=== PATIENT | female | born 1985 | race Two or more races ===

== ENCOUNTER 2019-10-09 22:06 | Emergency (ER) | payer OTHER ==
[~2019-10-09] VITALS: Ht 157.5 cm; Wt 80.7 kg
[2019-10-09 23:31] LABS: BASOPHILS % (AUTO) 0.3 % (0.0-2.0); EOSINOPHILS % (AUTO) 1.4 % (1.0-6.0); HEMATOCRIT 38.1 % (36-46); HEMOGLOBIN 12.7 g/dL (12.0-16.0); LYMPHOCYTES # (AUTO) 2.7 K/uL (1.0-4.8); LYMPHOCYTES % (AUTO) 26.7 % (22.0-44.0); MEAN CORPUSCULAR HEMOGLOBIN 28.1 pg (26.0-34.0); MEAN CORPUSCULAR HGB CONC 33.3 G/dL (31.0-37.0); MEAN CORPUSCULAR VOLUME 84 fL (80-100); MONOCYTES # (AUTO) 0.7 K/uL (0.1-1.0); MONOCYTES % (AUTO) 6.7 % (2.0-9.0); NEUTROPHILS # (AUTO) 6.7 K/uL (1.8-7.7); NEUTROPHILS % (AUTO) 64.9 % (40.0-70.0); PLATELET COUNT (AUTO) 279 K/uL (150-450); RED BLOOD CELL COUNT(AUTO) 4.51 MIL/uL (4.00-5.20); RED CELL DISTRIBUTION WIDTH 13.6 % (11.5-14.5)
[2019-10-09 23:40] LABS: ANION GAP 10 mmol/L (8-16); CALCIUM, TOTAL 8.6 mg/dL (8.8-10.5); CARBON DIOXIDE 26 mmol/L (22-29); CHLORIDE 108 mmol/L (98-107); GLOMERULAR FILTR. RATE CALC > 60 mL/min (>60); GLUCOSE,RANDOM 99 mg/dL (70-110); POTASSIUM 3.7 mmol/L (3.5-5.1); SODIUM SERUM 144 mmol/L (136-145); UREA NITROGEN, BLOOD 9 mg/dL (7-18)
[2019-10-09 23:45] LABS: ALANINE AMINOTRANSFERASE 31 U/L (12-78); ALBUMIN 3.5 g/dL (3.4-5.0); ALKALINE PHOSPHATASE 81 U/L (46-116); ASPARTATE AMINOTRANSFERASE 21 U/L (15-37); BILIRUBIN,TOTAL 0.4 mg/dL (0.1-1.0); TOTAL PROTEIN, SERUM 6.9 g/dL (6.4-8.2)
[2019-10-09 23:51] LABS: AMPHET/METH SCREEN,URINE NEGATIVE (NEGATIVE); BARBITURATE SCREEN, URINE NEGATIVE (NEGATIVE); BENZODIAZEPINES SCREEN,URINE NEGATIVE (NEGATIVE); CANNABINOID SCREEN,URINE NEGATIVE (NEGATIVE); COCAINE SCREEN,URINE NEGATIVE (NEGATIVE); METHADONE SCREEN, URINE NEGATIVE (NEGATIVE); OPIATE SCREEN,URINE NEGATIVE (NEGATIVE)
[2019-10-09 23:53] LABS: PHENCYCLIDINE SCREEN,URINE NEGATIVE (NEGATIVE)
[2019-10-10 01:21] LABS: HCG,QUANTITATIVE < 1 mIU/mL (0-6)
[2019-10-10 01:57] VITALS: BP 122/70
== END 2019-10-10 02:00 | disposition home or self-care (01) ==
LOC: EMS 22:10
DX: F43.9 Reaction to severe stress, unspecified (principal)

== ENCOUNTER 2020-01-09 22:28 | Inpatient (IN) | payer MEDICAID, OTHER ==
[~2020-01-09] VITALS: Ht 157.5 cm; Wt 82.2 kg
[2020-01-10 00:44] LABS: AMPHET/METH SCREEN,URINE NEGATIVE (NEGATIVE); BARBITURATE SCREEN, URINE NEGATIVE (NEGATIVE); BENZODIAZEPINES SCREEN,URINE NEGATIVE (NEGATIVE); CANNABINOID SCREEN,URINE POSITIVE (NEGATIVE); COCAINE SCREEN,URINE NEGATIVE (NEGATIVE); METHADONE SCREEN, URINE NEGATIVE (NEGATIVE); OPIATE SCREEN,URINE NEGATIVE (NEGATIVE); PHENCYCLIDINE SCREEN,URINE NEGATIVE (NEGATIVE)
[2020-01-10 00:59] LABS: BASOPHILS % (AUTO) 0.4 % (0.0-2.0); EOSINOPHILS % (AUTO) 0.7 % (1.0-6.0); HEMATOCRIT 39.6 % (36-46); LYMPHOCYTES # (AUTO) 2.8 K/uL (1.0-4.8); LYMPHOCYTES % (AUTO) 22.3 % (22.0-44.0); MEAN CORPUSCULAR HEMOGLOBIN 27.6 pg (26.0-34.0); MEAN CORPUSCULAR HGB CONC 32.7 G/dL (31.0-37.0); MEAN CORPUSCULAR VOLUME 84 fL (80-100); MONOCYTES # (AUTO) 0.8 K/uL (0.1-1.0); MONOCYTES % (AUTO) 6.5 % (2.0-9.0); NEUTROPHILS # (AUTO) 8.6 K/uL (1.8-7.7); NEUTROPHILS % (AUTO) 70.1 % (40.0-70.0); PLATELET COUNT (AUTO) 294 K/uL (150-450); RED BLOOD CELL COUNT(AUTO) 4.69 MIL/uL (4.00-5.20); RED CELL DISTRIBUTION WIDTH 14.1 % (11.5-14.5)
[2020-01-10 01:08] LABS: ANION GAP 6 mmol/L (8-16); CALCIUM, TOTAL 9.7 mg/dL (8.8-10.5); CARBON DIOXIDE 29 mmol/L (22-29); CHLORIDE 107 mmol/L (98-107); CREATININE 0.72 mg/dL (0.60-1.30); GLOMERULAR FILTR. RATE CALC > 60 mL/min (>60); GLUCOSE,RANDOM 103 mg/dL (70-110); POTASSIUM 3.7 mmol/L (3.5-5.1); SODIUM SERUM 142 mmol/L (136-145); UREA NITROGEN, BLOOD 10 mg/dL (7-18)
[2020-01-10 01:22] LABS: ALANINE AMINOTRANSFERASE 43 U/L (12-78); ALBUMIN 3.9 g/dL (3.4-5.0); ALKALINE PHOSPHATASE 109 U/L (46-116); ASPARTATE AMINOTRANSFERASE 18 U/L (15-37); BILIRUBIN,TOTAL 0.3 mg/dL (0.1-1.0); HCG,QUANTITATIVE < 1 mIU/mL (0-6); TOTAL PROTEIN, SERUM 7.9 g/dL (6.4-8.2)
[2020-01-10] MEDS ORDERED: HALOPERIDOL 5 MG TABLET PO PRN (04:30)
[2020-01-10] MEDS ORDERED: ZOLPIDEM TARTRATE 10 MG TABLET PO PRN (04:30)
[2020-01-10] MEDS ORDERED: LORazepam 2 MG TABLET PO PRN (04:30)
[2020-01-10 09:17] VITALS: BP 120/77
[2020-01-10] MEDS: BuPROPion HCL XL 150 MG ER TABLET PO SCH (10:28)
[2020-01-10] MEDS ORDERED: INFLUENZA VIRUS VACCINE QVS 2019-20 (3YR+)/PF 60 MCG/0.5 ML SYRINGE IM ONE (11:15)
[2020-01-10 15:21] VITALS: BP 125/77
[2020-01-10 20:57] VITALS: BP 109/68
[2020-01-11 03:02] VITALS: BP 112/78
[2020-01-11 08:11] VITALS: BP 133/96
[2020-01-11] MEDS: BuPROPion HCL XL 150 MG ER TABLET PO SCH (08:34)
[2020-01-11 09:50] LABS: CHOL/HDL RATIO 6.4 (3.9-5.7)
[2020-01-11 16:00] VITALS: BP 115/70
[2020-01-11] MEDS ORDERED: LOPERAMIDE HCL 2 MG CAPSULE PO PRN (16:45)
[2020-01-11] MEDS ORDERED: PETROLATUM,WHITE 28 GM JELLY TP PRN (16:45)
[2020-01-11] MEDS ORDERED: ALBUTEROL SULFATE HFA 90 MCG/PUFF 8 GM INHALER IH PRN (16:45)
[2020-01-11] MEDS ORDERED: NICOTINE 14 MG/24 HOUR PATCH TD PRN (16:45)
[2020-01-11] MEDS ORDERED: IBUPROFEN 400 MG TABLET PO PRN (16:45)
[2020-01-11] MEDS ORDERED: MAG HYDROX/AL HYDROX/SIMETH ES 30 ML SUSPENSION UDCUP PO PRN (16:45)
[2020-01-11] MEDS ORDERED: DOCUSATE SODIUM 100 MG CAPSULE PO PRN (16:45)
[2020-01-11] MEDS ORDERED: ACETAMINOPHEN 325 MG TABLET PO PRN (16:45)
[2020-01-11] MEDS ORDERED: ONDANSETRON HCL 4 MG TABLET PO PRN (16:45)
[2020-01-11] MEDS ORDERED: MAGNESIUM HYDROXIDE SUSPENSION 30 ML UDCUP PO PRN (16:45)
[2020-01-11] MEDS ORDERED: CloNIDine HCL 0.1 MG TABLET PO PRN (16:45)
[2020-01-11] MEDS ORDERED: GuaiFENesin/D-METHORPHAN [SUGAR-FREE] 200-20MG/10 ML SYRUP UDCUP PO PRN (16:45)
[2020-01-12 04:43] VITALS: BP 118/84
[2020-01-12 08:03] LABS: BASOPHILS % (AUTO) 0.5 % (0.0-2.0); EOSINOPHILS % (AUTO) 2.3 % (1.0-6.0); HEMATOCRIT 41.5 % (36-46); HEMOGLOBIN 13.8 g/dL (12.0-16.0); LYMPHOCYTES # (AUTO) 2.6 K/uL (1.0-4.8); LYMPHOCYTES % (AUTO) 30.7 % (22.0-44.0); MEAN CORPUSCULAR HEMOGLOBIN 28.1 pg (26.0-34.0); MEAN CORPUSCULAR HGB CONC 33.3 G/dL (31.0-37.0); MEAN CORPUSCULAR VOLUME 85 fL (80-100); MONOCYTES # (AUTO) 0.5 K/uL (0.1-1.0); MONOCYTES % (AUTO) 5.7 % (2.0-9.0); NEUTROPHILS # (AUTO) 5.1 K/uL (1.8-7.7); NEUTROPHILS % (AUTO) 60.8 % (40.0-70.0); PLATELET COUNT (AUTO) 289 K/uL (150-450); RED BLOOD CELL COUNT(AUTO) 4.91 MIL/uL (4.00-5.20); RED CELL DISTRIBUTION WIDTH 14.4 % (11.5-14.5)
[2020-01-12 08:12] VITALS: BP 116/72
[2020-01-12 08:26] LABS: HEMOGLOBIN A1C 5.5 % (4.5-6.2)
[2020-01-12] MEDS: BuPROPion HCL XL 150 MG ER TABLET PO SCH (08:26)
[2020-01-12 08:44] LABS: ALANINE AMINOTRANSFERASE 49 U/L (12-78); ALKALINE PHOSPHATASE 109 U/L (46-116); ANION GAP 9 mmol/L (8-16); ASPARTATE AMINOTRANSFERASE 23 U/L (15-37); BILIRUBIN,TOTAL 0.4 mg/dL (0.1-1.0); CALCIUM, TOTAL 9.3 mg/dL (8.8-10.5); CARBON DIOXIDE 26 mmol/L (22-29); CHLORIDE 106 mmol/L (98-107); CHOL/HDL RATIO 6.1 (3.9-5.7); CHOLESTEROL 227 mg/dL (131-200); CREATININE 0.56 mg/dL (0.60-1.30); GLOMERULAR FILTR. RATE CALC > 60 mL/min (>60); GLUCOSE,RANDOM 88 mg/dL (70-110); HDL CHOLESTEROL 37 mg/dL (40-60); LDL CHOL (CALC.) 163 mg/dL (0-130); SODIUM SERUM 141 mmol/L (136-145); THYROID STIMULATING HORMONE 2.77 uIU/mL (0.36-3.74); TOTAL PROTEIN, SERUM 8.3 g/dL (6.4-8.2); TRIGLYCERIDES 137 mg/dL (15-150); UREA NITROGEN, BLOOD 8 mg/dL (7-18)
[2020-01-12 16:06] VITALS: BP 112/74
[2020-01-12 20:39] VITALS: BP 120/76
[2020-01-13 04:50] VITALS: BP 120/78
[2020-01-13] MEDS: BuPROPion HCL XL 150 MG ER TABLET PO SCH (08:14)
[2020-01-13 08:17] VITALS: BP 114/69
[2020-01-13] MEDS ORDERED: BUPR-93 PO (10:23)
[2020-01-13 16:06] VITALS: BP 121/72
== END 2020-01-13 19:35 | disposition home or self-care (01) | DRG 751 ==
LOC: EMS 22:30 → B3A 01-10 05:00
PROVIDERS: ADMIT Psychiatry & Neurology Psychiatry; ATTEND Psychiatry & Neurology Psychiatry
DX: F33.9 Major depressive disorder, recurrent, unspecified (principal); R45.851 Suicidal ideations; Z91.14 Patient's other noncompliance with medication regimen; D72.829 Elevated white blood cell count, unspecified; R00.0 Tachycardia, unspecified; E78.5 Hyperlipidemia, unspecified; F41.0 Panic disorder [episodic paroxysmal anxiety]; Z81.8 Family history of other mental and behavioral disorders; Z23 Encounter for immunization
CPT/HCPCS: 83036; 84443; 90686; G0480